=== PATIENT | male | born 1945 | race Caucasian/White ===

== ENCOUNTER 2020-02-23 05:39 | Day surgery (SDC) | payer OTHER ==
[~2020-02-23] VITALS: Ht 185.4 cm; Wt 88.5 kg
[~2020-02-23 05:39] MED LIST: CENTRUM MEN'S1 EACH PO; FISH OIL 1,0001 CA1 PO
[2020-02-23 06:09] LABS: HEMATOCRIT 45.4 % (42.0-54.0); HEMOGLOBIN 15.1 g/dL (13.5-17.5); MCH 31.6 pg (26.0-34.0); MCHC 33.3 g/dL (31.0-37.0); MEAN PLATELET VOLUME 9.2 fL (7.4-10.4); RBC 4.78 10x6/uL (4.20-6.10); RDW 12.6 % (11.5-14.5)
[2020-02-23 06:40] VITALS: BP 113/69; Ht 185.4 cm; Wt 88.5 kg
[2020-02-23] MEDS ORDERED: HYDROCODON-ACE1 EAC7 PO (09:23)
[2020-02-23] MEDS ORDERED: FLOMAX0.4 MG PO (09:24)
[2020-02-23] MEDS ORDERED: FUROSEMIDE20 MG PO (09:24)
--- NOTE | 2020-02-23 09:36 | NUR ---
OPA IN AIRWAY ON ADMIT TO [facility]
--- NOTE | 2020-02-23 09:54 | NUR ---
SCOPE PATCHY BEHIND RT EAR ON ADMIT
== END 2020-02-23 16:30 | disposition home or self-care (01) ==
LOC: D.OPS 05:39 → D.PAN 08:00 → D.OPS 08:00
PROVIDERS: Anesthesiology; ATTEND Surgery
DX: K40.20 Bilateral inguinal hernia, without obstruction or gangrene, not specified as recurrent (principal); E78.2 Mixed hyperlipidemia